=== PATIENT | female | born 1970 | race Caucasian/White ===

== ENCOUNTER → 2022-04-27 10:53 | Outpatient (CLI) | payer BC, SELFPAY ==
--- NOTE | ~2022-04-27 | US_ITS ---
Thyroid ultrasound. Clinical History: Thyroid nodule COMPARISON: 07/31/2016 Findings: Real-time sonography of the thyroid gland was performed. The right lobe measures 5.4 x 2.5 x 2.0 cm. The left lobe measures 5.0 x 1.9 x 1.7 cm. The isthmus is 4 mm in AP diameter. There is a 7 mm hypoechoic, likely cystic, nodule at the posterior aspect of the right lower pole, pr obable central colloid. Impression: Subcentimeter right thyroid lobe nodule, which requires no further follow-up.. Reviewed, dictated and finalized at location . Impression: Subcentimeter right thyroid lobe nodule, which requires no further follow-up..
== END ==
PROVIDERS: PCP Nurse Practitioner Family; Visit Provider Nurse Practitioner
DX: E04.1 Nontoxic single thyroid nodule (principal)
CPT/HCPCS: 76536